=== PATIENT | female | born 1970 | race Caucasian/White ===

== ENCOUNTER 2019-01-10 19:15 | Emergency (ER) | payer OTHER ==
[~2019-01-10] VITALS: Ht 167.6 cm; Wt 59.4 kg
--- NOTE | 2019-01-10 19:55 | NUR ---
Patient discharged to home in stable conditon. Written and verbal after care instructions given. Patient verbalizes understanding of instructions. Ambulated from ER with stable gait. Gait training complete. Patient ambulating with crutches ADLIB. Patient noted with angelica wrap to L ankle per ER MD instruction. [facility]. All belongings with patient.
[2019-01-10 19:58] VITALS: BP 121/70
== END 2019-01-10 19:59 | disposition home or self-care (01) ==
LOC: ER 19:15
DX: S93.402A Sprain of unspecified ligament of left ankle, initial encounter (principal); X58.XXXA Exposure to other specified factors, initial encounter; Y93.73 Activity, racquet and hand sports; Y92.89 Other specified places as the place of occurrence of the external cause; Y99.8 Other external cause status
CPT/HCPCS: A4663

== ENCOUNTER 2020-01-11 16:42 | Emergency (ER) | payer OTHER ==
[~2020-01-11] VITALS: Ht 167.6 cm; Wt 57.6 kg
--- NOTE | 2020-01-11 17:20 | NUR ---
pt walked into er co fall last night in the kitchen, back of head vs sink. pt had headache and nausea last night, today the pain subsided only heaviness in the head reained. pt was sent to er by pmd for ct scan of the head.
[2020-01-11] MEDS ORDERED: ONDANSETRON ODT 4 MG TAB.RAPDIS ONE (18:07)
[2020-01-11] MEDS ORDERED: ONDANSETRON ODT 4 MG TAB.RAPDIS SL ONE (18:30)
--- NOTE | 2020-01-11 19:10 | NUR ---
Patient discharged to home in stable condition. Written and verbal after care instructions given. Patient verbalizes understanding of instructions. Stressed follow up or return to ER for worsening s/s.pt walks in steady gait,
[2020-01-11 19:11] VITALS: BP 109/70
== END 2020-01-11 19:14 | disposition home or self-care (01) ==
LOC: ER 16:42
DX: S06.0X0A Concussion without loss of consciousness, initial encounter (principal); W17.89XA Other fall from one level to another, initial encounter; Y93.E1 Activity, personal bathing and showering; Y92.031 Bathroom in apartment as the place of occurrence of the external cause
CPT/HCPCS: 70450; A4663; Q0162